=== PATIENT | female | born 1985 | race African-American/Black ===

== ENCOUNTER → 2019-07-09 | Outpatient (CLI) | payer OTHER ==
--- NOTE | 2019-07-09 15:54 | REP ---
BILATERAL MAMMOGRAM AND BREAST ULTRASOUND: HISTORY: Bilateral breast pain and nipple discharge. Family history of breast cancer in mother at age 42 and in maternal grandmother under age 50[facility]%. No comparison study. Bilateral mammography performed in the MLO and CC projections. There is mild scattered fibroglandular tissue bilaterally. No suspicious mass or architectural distortion is seen bilaterally. No clustered microcalcifications are seen. Real-time sonographic evaluation of the retroareolar regions performed bilaterally in this patient with history of nipple discharge. There is slight dilatation of retroareolar ducts without evidence of a cystic or solid nodule. IMPRESSION: ACR 2 benign. No suspicious mass or clustered microcalcifications. No sonographic evidence of mass in retroareolar region bilaterally. Given the patient's elevated lifetime risk of breast cancer, I would recommend supplemental MRI of the breasts with and without contrast in 6 months, in addition to annual screening mammography. BIRADS 2: BI-RADS/ACR category 2 mammogram. Benign Findings. This mammogram was interpreted with the aid of an FDA-approved computer-aided detection system. The patient states she/he had a clinical breast exam 06/2019. The patient letter being requested is M2. Electronically Signed by Sorin Noe MD 07/11/2019 11:00 A
== END ==
LOC: M RAD 13:24
PROVIDERS: ATTEND Family Medicine
DX: N64.4 Mastodynia (principal); N64.52 Nipple discharge; Z80.3 Family history of malignant neoplasm of breast

== ENCOUNTER 2019-08-11 13:26 | Emergency (ER) | payer OTHER ==
[~2019-08-11] VITALS: Ht 175.3 cm; Wt 101.6 kg
[2019-08-11] MEDS ORDERED: ASPI81TA85 PO (13:57)
[2019-08-11] MEDS ORDERED: METOCLOPRAMIDE INJ 10MG/2ML VIAL (J2765) IV ONE (14:15)
[2019-08-11] MEDS ORDERED: NITROGLYCERIN 0.4 MG SUBL TABLET SL PRN (14:15)
--- NOTE | 2019-08-11 14:55 | REP ---
Portable chest x-ray: Single view. History: Chest pain. Findings: Monitoring electrodes are seen overlying the chest. The lungs are symmetrically aerated and clear. The heart is not enlarged. Pulmonary vasculature is not increased. No bony abnormality is seen. Pleural angles are sharp. Impression: Negative for chest x-ray. Electronically Signed by Cleve Monte MD 08/11/2019 02:46 P
[2019-08-11 15:11] LABS: BASO % 0.4 % (0.0-1.0); EOS # 0.1 10^3/uL (0.0-0.5); EOS % 1.1 % (0.0-3.0); HEMATOCRIT 45.9 % (36.0-47.0); LYMPH # 2.3 10^3/uL (1.5-5.0); LYMPH % 27.9 % (24.0-44.0); MEAN CORPUSCULAR HEMOGLOBIN 30.1 pg (27.0-33.0); MEAN CORPUSCULAR HGB CONC 32.7 g/dl (32.0-36.5); MONO # 0.4 10^3/uL (0.0-0.8); NEUTROPHILS # 5.5 10^3/uL (1.5-8.5); NEUTROPHILS % 65.4 % (36.0-66.0); PLATELET COUNT, AUTOMATED 236 10^3/uL (150-450); RED BLOOD COUNT 4.99 10^6/uL (4.00-5.40); WHITE BLOOD COUNT 8.4 10^3/uL (4.0-10.0)
--- NOTE | 2019-08-11 15:22 | REP ---
Clinical: Acute headache . Comparison: 9th . Findings: The ventricles, sulci, and cisterns are normal in position and appearance. Noe-white differentiation is maintained. No acute intracranial hemorrhage, mass/mass effect, pathology or trauma/injury. No evidence for acute infarction. No extra-axial fluid collection. Calvarium is intact. Paranasal sinuses and mastoid air cells are clear. Impression: Normal noncontrast head CT. No evidence for acute intracranial pathology or trauma/injury. Electronically Signed by Josh Fairbanks MD 08/11/2019 03:13 P
[2019-08-11 15:23] LABS: INR 1.07; PROTHROMBIN TIME 13.6 SECONDS (11.8-14.0)
[2019-08-11 15:25] LABS: D-DIMER QUANT 614.09 ng/ml (<500)
[2019-08-11 15:43] LABS: ALBUMIN 4.1 GM/DL (3.2-5.2); ALT/SGPT 19 U/L (12-78); BILIRUBIN,DIRECT 0.1 MG/DL (0.0-0.2); BILIRUBIN,TOTAL 0.4 MG/DL (0.2-1.0); BLOOD UREA NITROGEN 8 MG/DL (7-18); CALCIUM LEVEL 9.2 MG/DL (8.5-10.1); CARBON DIOXIDE LEVEL 26 MEQ/L (21-32); CHLORIDE LEVEL 106 MEQ/L (98-107); CK-MB VALUE MASS < 1.0 NG/ML (<3.6); CPK CREATINE PHOSPHOKINASE 247 U/L (26-192); CREATININE FOR GFR 0.98 MG/DL (0.55-1.30); GLOMERULAR FILTRATION RATE > 60.0 (>60); GLUCOSE, FASTING 76 MG/DL (70-100); NT-PRO BNP 25 PG/ML (<125); SODIUM LEVEL 138 MEQ/L (136-145); TOTAL PROTEIN 9.2 GM/DL (6.4-8.2); TROPONIN I < 0.02 NG/ML (< 0.10)
[2019-08-11] MEDS ORDERED: ISOVUE-370 76% 100ML VIAL (Q9967) As Ordered ONE (16:06)
[2019-08-11] MEDS ORDERED: ACETAMINOPHEN 325 MG TAB PO ONE (17:00)
[2019-08-11 17:45] VITALS: BP 115/65
[2019-08-11] MEDS ORDERED: REGL10TA6 PO (18:14)
--- NOTE | 2019-08-12 07:45 | REP ---
CT pulmonary angiogram: With IV contrast. History: Chest pain. Comparison studies: No comparison study. Contrast dose: 75 ML of Isovue [address] technique: Helical scanning is acquired and overlapping 1.5 mm and contiguous 3 mm axial images are reformatted. In addition, maximum intensity projection and multiplanar re-formation images are generated in sagittal and coronal imaging projections. CT pulmonary angiographic findings: There is good opacification of the pulmonary arterial tree. No vessel cutoff or filling defect is seen to suggest pulmonary embolus. Maximal intensity projection images show no abnormality in the pulmonary arterial tree. The thoracic aorta enhances homogeneously and it is normal in course and caliber. No aneurysm or dissection is appreciated. Great vessel origins are unremarkable. There is no evidence of pleural or pericardial effusion. There are granulomatous lymph node calcifications in the right superior hilus. No mediastinal or hilar mass or adenopathy is observed. No adrenal lesion is observed on either side. Visualized upper abdominal structures are unremarkable. Lung window settings show no evidence of infiltrate, pulmonary mass, or effusion. No significant lung nodule is appreciated. No bony destructive lesion is seen. Impression: No CT evidence of pulmonary embolus or acute aortic abnormality. No active cardiopulmonary disease seen. Electronically Signed by Cleve Monte MD 08/11/2019 04:24 P
--- NOTE | 2019-08-12 08:49 | ECGEPIP ---
[facility] - ED Test Date: 2019-08-11 Pat Name: ROBERTO GOULD Department: Room: - Gender: Female [employer]over: whitney : 1985 Requested By: Amari Almodovar Order Number: [id number] Reading MD: Daniel Pillai Measurements Intervals [place] Rate: 73 P: 38 [place]: 162 QRS: 23 QRSD: 104 T: 23 QT: 394 QTc: 434 Interpretive Statements SINUS RHYTHM BASELINE ARTIFACT AFFECTS INTERPRETATION NO PRIORS FOR COMPARISON Electronically Signed on 08-12-2019 8:49:02 EST by Daniel Pillai
== END 2019-08-11 18:24 | disposition home or self-care (01) ==
LOC: M ED 13:26
DX: R51 Headache (principal); Z79.82 Long term (current) use of aspirin
CPT/HCPCS: 36415; 70450; 71045; 71275; 80048; 80076; 82550; 82553; 83880; 84484; 85025; 85379; 85610; 93005; 93041; 94760; 96374; 99285; J2765; Q9967